=== PATIENT | male | born 1945 | race Caucasian/White ===

== ENCOUNTER 2019-04-14 18:07 | Inpatient (IN) | payer MEDICARE ==
[~2019-04-14] VITALS: Ht 182.9 cm; Wt 96.5 kg
[2019-04-15] MEDS ORDERED: SERT25TA3 PO (07:20)
[2019-04-15] MEDS ORDERED: ACET325T26 PO (07:20)
[2019-04-15] MEDS ORDERED: ATOR10TA9 PO (07:20)
[2019-04-15] MEDS ORDERED: CHOL100011 PO (07:20)
[2019-04-15] MEDS ORDERED: ACETAMINOPHEN 325 MG TABLET PO PRN (08:00)
[2019-04-15] MEDS ORDERED: DOCUSATE 100 MG CAPSULE PO PRN (08:00)
[2019-04-15] MEDS ORDERED: BISACODYL 10 MG SUPP PR PRN (08:00)
[2019-04-15] MEDS ORDERED: ONDANSETRON ODT 4 MG PO PRN (08:00)
[2019-04-15] MEDS ORDERED: POLYETHYLENE GLYCOL 17 GM PACKET PO PRN (08:00)
[2019-04-15] MEDS: DIVALPROEX 250 MG TAB.ER.24H PO SCH ×3 (12:30→21:09)
[2019-04-15 12:51] VITALS: BP 138/78
[2019-04-15] MEDS ORDERED: DIVALPROEX 250 MG TAB.ER.24H PO SCH (16:00)
[2019-04-15 17:03] LABS: MICROSCOPIC NOT IND
[2019-04-15 17:19] LABS: CULTURE INDICATED? NO
[2019-04-15 20:00] VITALS: BP 151/87
[2019-04-15] MEDS: ATORVASTATIN 10 MG TABLET PO SCH (21:09)
[2019-04-15] MEDS: MIRTAZAPINE 15 MG TABLET PO SCH (21:09)
[2019-04-16] MEDS: LORazepam 0.5MG TABLET PO PRN ×3 (00:51→20:30)
[2019-04-16] MEDS: DIVALPROEX 250 MG TAB.ER.24H PO SCH ×3 (08:34→20:30)
[2019-04-16 10:40] VITALS: BP 138/80
[2019-04-16 12:48] LABS: BASOPHILS # (AUTO) 0.09 x10^3/uL (0-0.1); BASOPHILS % (AUTO) 1 % (0-1); EOSINOPHILS # (AUTO) 0.32 x10^3/uL (0-0.4); EOSINOPHILS % (AUTO) 4 % (1-7); LYMPHOCYTES # (AUTO) 1.45 x10^3/uL (1-3.4); LYMPHOCYTES % (AUTO) 19 % (22-44); MD NO; MEAN CORPUSCULAR HEMOGLOBIN 29.2 pg (27.5-34.5); MEAN CORPUSCULAR HGB CONC 32.5 g/dL (33.2-36.2); MEAN CORPUSCULAR VOLUME 89.9 fL (81-97); MEAN PLATELET VOLUME 8.3 fL (7.4-10.4); MONOCYTES # (AUTO) 0.69 x10^3/uL (0.2-0.8); MONOCYTES % (AUTO) 9 % (2-9); NEUTROPHILS # (AUTO) 5.22 x10^3/uL (1.8-6.8); NEUTROPHILS % (AUTO) 67 % (42-75); PLATELET COUNT 251 x10^3/uL (130-400); RED CELL DISTRIBUTION WIDTH 14.5 % (9.4-14.8)
[2019-04-16 12:56] LABS: ANION GAP 6 mmol/L (5-15); CHLORIDE 109 mmol/L (98-107)
[2019-04-16 13:19] LABS: HCT (SEDRATE) 43.2 % (39.2-51.8)
[2019-04-16 13:25] LABS: CHOL/HDL RATIO 3.8; CHOLESTEROL, TOTAL 166 mg/dL (140-239); CREATININE 0.96 mg/dL (0.7-1.3); FREE T4 (FREE THYROXINE) 1.15 ng/dL (0.76-1.46); HDL CHOL % 27 % (26-37); HDL CHOLESTEROL (DIRECT) 44 mg/dL (40-60); LDL CHOLESTEROL,CALCULATED 93 mg/dL (54-169); LDL/HDL RATIO 2.1 (0.5-3.0); TRIGLYCERIDES 147 mg/dL (50-200); VLDL CHOLESTEROL 29 mg/dL (0-25)
[2019-04-16 19:50] VITALS: BP 126/74
[2019-04-16] MEDS: MIRTAZAPINE 15 MG TABLET PO SCH (20:30)
[2019-04-16] MEDS: ATORVASTATIN 10 MG TABLET PO SCH (20:30)
[2019-04-17] MEDS ORDERED: HALOPERIDOL 5 MG/ML IM STA (03:27)
[2019-04-17] MEDS ORDERED: HALOPERIDOL 5 MG/ML ONE (03:28)
[2019-04-17] MEDS: QUETIAPINE 25MG TABLET PO PRN (03:46)
[2019-04-17] MEDS: DIVALPROEX 250 MG TAB.ER.24H PO SCH ×3 (09:00→21:00)
[2019-04-17 11:15] VITALS: BP 122/76
[2019-04-17] MEDS: MIRTAZAPINE 30 MG TABLET PO SCH (21:00)
[2019-04-17] MEDS: ATORVASTATIN 10 MG TABLET PO SCH (21:00)
[2019-04-18] MEDS: ATORVASTATIN 10 MG TABLET PO SCH ×2 (00:41→20:04)
[2019-04-18] MEDS: DIVALPROEX 250 MG TAB.ER.24H PO SCH ×3 (00:42→20:03)
[2019-04-18 00:55] VITALS: BP 161/83
[2019-04-18 07:30] VITALS: BP 124/69
[2019-04-18 19:58] VITALS: BP 116/69
[2019-04-18] MEDS: MIRTAZAPINE 30 MG TABLET PO SCH (20:03)
[2019-04-18] MEDS: LORazepam 0.5MG TABLET PO PRN (20:05)
[2019-04-19] MEDS: LORazepam 0.5MG TABLET PO PRN ×2 (01:50→23:43)
[2019-04-19 07:03] VITALS: BP 121/73
[2019-04-19] MEDS: DIVALPROEX 250 MG TAB.ER.24H PO SCH ×3 (08:46→20:11)
[2019-04-19] MEDS: QUETIAPINE 25MG TABLET PO PRN ×2 (13:47→23:43)
[2019-04-19] MEDS: QUETIAPINE 25MG TABLET PO SCH ×2 (16:27→20:11)
[2019-04-19 19:41] VITALS: BP 133/79
[2019-04-19] MEDS: ATORVASTATIN 10 MG TABLET PO SCH (20:11)
[2019-04-19] MEDS: MIRTAZAPINE 30 MG TABLET PO SCH (20:11)
[2019-04-19] MEDS: TRAZODONE 50MG TABLET PO PRN (23:43)
[2019-04-20] MEDS ORDERED: LORazepam 2 MG/ML, 1ML IM ONE ×2 (01:00→23:00)
[2019-04-20 08:00] VITALS: BP 133/76
[2019-04-20] MEDS: DIVALPROEX 250 MG TAB.ER.24H PO SCH ×3 (11:21→20:19)
[2019-04-20] MEDS: QUETIAPINE 25MG TABLET PO SCH ×2 (11:21→20:19)
[2019-04-20] MEDS: LORazepam 0.5MG TABLET PO PRN (17:06)
[2019-04-20 19:43] VITALS: BP 116/75
[2019-04-20] MEDS: MIRTAZAPINE 30 MG TABLET PO SCH (20:19)
[2019-04-20] MEDS: ATORVASTATIN 10 MG TABLET PO SCH (20:20)
[2019-04-20] MEDS ORDERED: LORazepam 1MG TABLET ONE (22:49)
[2019-04-20] MEDS: TRAZODONE 50MG TABLET PO PRN (23:00)
[2019-04-21 07:18] VITALS: BP 123/76
[2019-04-21] MEDS: DIVALPROEX 250 MG TAB.ER.24H PO SCH ×3 (11:24→20:29)
[2019-04-21] MEDS: QUETIAPINE 25MG TABLET PO SCH ×2 (11:24→20:29)
[2019-04-21 19:55] VITALS: BP 120/71
[2019-04-21] MEDS: MIRTAZAPINE 30 MG TABLET PO SCH (20:29)
[2019-04-21] MEDS: ATORVASTATIN 10 MG TABLET PO SCH (20:29)
[2019-04-21] MEDS: TRAZODONE 50MG TABLET PO PRN (22:08)
[2019-04-21] MEDS: LORazepam 0.5MG TABLET PO PRN (22:09)
[2019-04-22] MEDS: LORazepam 0.5MG TABLET PO PRN ×3 (03:51→21:00)
[2019-04-22 07:15] VITALS: BP 123/77
[2019-04-22] MEDS: DIVALPROEX 250 MG TAB.ER.24H PO SCH ×3 (09:07→20:49)
[2019-04-22] MEDS: QUETIAPINE 25MG TABLET PO SCH ×3 (09:07→22:02)
[2019-04-22] MEDS: QUETIAPINE 25MG TABLET PO PRN (14:03)
[2019-04-22 19:45] VITALS: BP 151/74
[2019-04-22] MEDS: MIRTAZAPINE 30 MG TABLET PO SCH (20:50)
[2019-04-22] MEDS: ATORVASTATIN 10 MG TABLET PO SCH (20:50)
[2019-04-22 22:50] VITALS: BP 136/85
[2019-04-23 07:00] VITALS: BP 124/79
[2019-04-23] MEDS: DIVALPROEX 250 MG TAB.ER.24H PO SCH ×3 (09:00→20:56)
[2019-04-23 20:16] VITALS: BP 136/75
[2019-04-23] MEDS: MIRTAZAPINE 30 MG TABLET PO SCH (20:56)
[2019-04-23] MEDS: ATORVASTATIN 10 MG TABLET PO SCH (20:56)
[2019-04-23] MEDS: QUETIAPINE 25MG TABLET PO SCH (20:57)
[2019-04-24 06:52] VITALS: BP 125/79
[2019-04-24] MEDS: DIVALPROEX 250 MG TAB.ER.24H PO SCH ×3 (08:04→21:36)
[2019-04-24] MEDS: QUETIAPINE 25MG TABLET PO SCH ×2 (08:05→21:36)
[2019-04-24 19:49] VITALS: BP 144/82
[2019-04-24] MEDS: LORazepam 0.5MG TABLET PO PRN (21:35)
[2019-04-24] MEDS: TRAZODONE 50MG TABLET PO PRN (21:35)
[2019-04-24] MEDS: MIRTAZAPINE 30 MG TABLET PO SCH (21:36)
[2019-04-24] MEDS: ATORVASTATIN 10 MG TABLET PO SCH (21:36)
[2019-04-25] MEDS: QUETIAPINE 25MG TABLET PO PRN ×2 (00:59→20:56)
[2019-04-25 07:18] VITALS: BP 126/76
[2019-04-25] MEDS: QUETIAPINE 25MG TABLET PO SCH ×2 (08:43→20:54)
[2019-04-25] MEDS: DIVALPROEX 250 MG TAB.ER.24H PO SCH ×3 (08:43→20:54)
[2019-04-25] MEDS ORDERED: TRAZODONE 50MG TABLET PO PRN (14:00)
[2019-04-25 19:41] VITALS: BP 138/77
[2019-04-25] MEDS: LORazepam 0.5MG TABLET PO PRN (20:54)
[2019-04-25] MEDS: ATORVASTATIN 10 MG TABLET PO SCH (20:54)
[2019-04-26] MEDS: DIVALPROEX 250 MG TAB.ER.24H PO SCH ×3 (09:00→20:22)
[2019-04-26] MEDS: QUETIAPINE 25MG TABLET PO SCH ×2 (09:00→20:22)
[2019-04-26 10:07] VITALS: BP 128/81
[2019-04-26] MEDS: QUETIAPINE 25MG TABLET PO PRN ×2 (15:22→22:25)
[2019-04-26 20:00] VITALS: BP 122/74
[2019-04-26] MEDS: ATORVASTATIN 10 MG TABLET PO SCH (20:22)
[2019-04-26] MEDS: TRAZODONE 50MG TABLET PO SCH (20:22)
[2019-04-26] MEDS: LORazepam 0.5MG TABLET PO PRN (20:23)
[2019-04-27 07:10] VITALS: BP 108/69
[2019-04-27] MEDS: DIVALPROEX 250 MG TAB.ER.24H PO SCH ×3 (08:09→20:46)
[2019-04-27] MEDS: QUETIAPINE 25MG TABLET PO SCH ×2 (08:10→20:47)
[2019-04-27] MEDS: LORazepam 0.5MG TABLET PO PRN (20:46)
[2019-04-27] MEDS: ATORVASTATIN 10 MG TABLET PO SCH (20:46)
[2019-04-27] MEDS: TRAZODONE 50MG TABLET PO SCH (20:46)
[2019-04-27] MEDS: QUETIAPINE 25MG TABLET PO PRN (20:47)
[2019-04-28 07:49] VITALS: BP 133/79
[2019-04-28] MEDS: DIVALPROEX 250 MG TAB.ER.24H PO SCH ×3 (08:26→20:22)
[2019-04-28] MEDS: QUETIAPINE 25MG TABLET PO SCH ×2 (08:27→20:22)
[2019-04-28 19:20] VITALS: BP 112/69
[2019-04-28] MEDS: ATORVASTATIN 10 MG TABLET PO SCH (20:22)
[2019-04-28] MEDS: TRAZODONE 50MG TABLET PO SCH (20:22)
[2019-04-29 07:05] VITALS: BP 135/82
[2019-04-29] MEDS: DIVALPROEX 250 MG TAB.ER.24H PO SCH (08:41)
[2019-04-29] MEDS: QUETIAPINE 25MG TABLET PO SCH (08:41)
== END 2019-04-29 11:30 | disposition home or self-care (01) | DRG 57 ==
LOC: 3E 04-15 11:55
PROVIDERS: ADMIT Psychiatry & Neurology Psychosomatic Medicine; ATTEND Psychiatry & Neurology Psychosomatic Medicine
DX: G30.9 Alzheimer's disease, unspecified (principal); F02.81 Dementia in other diseases classified elsewhere, unspecified severity, with behavioral disturbance; R41.3 Other amnesia; E78.5 Hyperlipidemia, unspecified; I25.10 Atherosclerotic heart disease of native coronary artery without angina pectoris; Z87.891 Personal history of nicotine dependence; Z91.83 Wandering in diseases classified elsewhere
CPT/HCPCS: 36415; 71045; 80048; 80061; 81003; 82140; 82607; 84439; 84443; 85025; 85651; 86592; 93005; 92522-GN; J1630; J2060